=== PATIENT | male | born 1970 | race Caucasian/White ===

== ENCOUNTER → 2020-09-02 | Outpatient (CLI) | payer OTHER ==
--- NOTE | 2020-09-03 13:21 | RAD ---
MR#: [id number] Date of Study: 09/02/2020 Ordering Physician: MAGDALENO OROZCO, Referring Physician: SILVERIO IQBAL Tech: RT Nathalie (R) (N) APPROVED REPORT Test Type: Exercise Stress Nurse/Tech: Lore Shukla RN Test Indications: Chest pain Cardiac History: No known cardiac Medications: See Electronic Medical Record Medical History: See Electronic Medical Record Resting ECG: SR Resting Heart Rate: 64 bpm Resting Blood Pressure: 121/74mmHg Pretest Chest Pain: None Nurse/Tech Notes Lungs CTA, S1S2 Consent: The procedure was explained to the patient in lay terms. Informed consent was witnessed. Sancho eout was entered into [email or web address]. History and Stress Test performed by SAURAV Ortega Stress Symptoms No chest pain or symptoms. POST EXERCISE Reason for Termination: Reached target heart rate Target HR: Yes Max HR: 175 bpm 119% of Maximum Predicted HR: 147 bpm Exercise duration: 11:20 min:sec, 4 Stage Exercise capacity: 13.4METs Max Blood Pressure: 169/84mmHg Blood Pressure response to exercise: Normal blood pressure response during stress. Heart Rate response to exercise: normal response Chest Pain: No. Arrhythmia: No. ST Change: No. INTERPRETATION Stress EKG Conclusion: No evidence of stress induced EKG changes. Imaging Protocol IMAGE PROTOCOL: Rest Tc-99m/stress Tc-99m 1 day Rest: Stress: Viability: Radiopharm.Tc99m SosocplutQm45l Sestamibi Wfyl58tAu 32mCi Duration 13min. 13min. Img Date 09/02/2020 09/02/2020 Inj-Img Mtxr25hku. 60min. STRESS DATA End Diast. Vol.111.0mlLVEDV index BSA54.0ml End Syst. Vol.39.0mlLVESV index BSA19.0ml Myocardial Imgj170.0gEject. Wlghhilb83.0% Stress Scores Regional WT0.00Summed WT1.00 Regional WM0.00Summed WM0.00 The rest and stress images show normal perfusion, normal contraction and thickening. LV Perf. Quant 17 Seg. SSS0.00 17 Seg. SRS0.00 17 Seg. SDS0.00 Stress Defect Extent (% LAD)0.00Rest Defect Extent (% LAD)0.00Rev. Defect Extent (% LAD)0.00 Stress Defect Extent (% LCX) 0.00Rest Defect Extent (% LCX)0.00Rev. Defect Extent (% LCX)0.00 Stress Defect Extent (% RCA)0.00Rest Defect Extent (% RCA)0.00Rev. Defect Extent (% RCA)0.00 Stress Defect Extent (% DANIA)0.00Rest Defect Extent (% DANIA)0.00Rev. Defect Extent (% DANIA)0.00 Other Information Quality:Average Risk Assessment: Low Risk Conclusion 1. No evidence of EKG changes with stress testing. 2. Good exercise capacity with 10 Mets achieved. 3. Normal perfusion at stress/rest. 4. Low risk study. 5. EF > 60%. Signed by : Jeovanny Barr, Electronically Approved : 09/03/2020 13:20:25
== END ==
LOC: NM 10:18
PROVIDERS: ATTEND Internal Medicine Cardiovascular Disease
DX: R07.9 Chest pain, unspecified (principal)
CPT/HCPCS: 78452; A9500